=== PATIENT | male | born 1980 | race Two or more races ===

== ENCOUNTER 2019-05-05 01:46 | Emergency (ER) | payer OTHER ==
--- NOTE | 2019-05-05 02:16 | ED ---
Abdominal Pain/Male - HPI Summary HPI Summary: Pt is a 38 y/o M presenting to the ED with a chief complaint of diffuse abd pain initially onset this afternoon around 1600. He states he had a sandwich from [email or web address], and then developed the abd pain a bit later in the night. He states the pain is constant, and it is accompanied by N/V. He denies diarrhea or fever. Sx aggravated by movement and alleviated by nothing. - History of Current Complaint Chief Complaint: EDAbdPain Stated Complaint: STOMACH PAIN PER PT Hx Obtained From: Patient Onset/Duration: Gradual Onset, Lasting Hours, Still Present Timing: Constant, Lasting Hours Severity Initially: Moderate Severity Currently: Severe Pain Intensity: 10 Pain Scale Used: 0-10 Numeric Location: Diffuse Radiates: No Aggravating Factor(s): Movement Alleviating Factor(s): Nothing Associated Signs And Symptoms: Positive: Nausea, Vomiting. Negative: Fever, Diarrhea - Allergies/Home Medications Allergies/Adverse Reactions: Allergies Allergy/AdvReac Type Severity Reaction Status Date / Time No Known Allergies Allergy Verified 05/05/19 01:50 Home Medications: Home Medications Bisoprolol TAB* [Zebeta TAB*] 5 mg PO DAILY 05/05/19 [History Confirmed 05/05/19 ] Dextroamphetamine/Amphetamine [Adderall Xr 30 mg Capsule] 30 mg PO BID 05/05/19 [History Confirmed 05/05/19] PMH/Surg Hx/FS Hx/Imm Hx Previously Healthy: Yes Endocrine/Hematology History: Denies: Hx Diabetes Cardiovascular History: Reports: Hx Hypertension Psychiatric History: Reports: Hx Attention Deficit Hyperactivity Disorder Infectious Disease History: No Infectious Disease History: Denies: Traveled Outside the [place] in Last 30 Days - Family History Known Family History: Negative: Cardiac Disease - Social History Alcohol Use: None Hx Substance Use: No Substance Use Type: Reports: None Hx Tobacco Use: No Smoking Status (MU): Never Smoked Tobacco Review of Systems Negative: Fever Positive: Abdominal Pain, Vomiting, Nausea. Negative: Diarrhea All Other Systems Reviewed And Are Negative: Yes Physical Exam - Summary Physical Exam Summary: Appearance: Well-appearing, Well-nourished, lying in bed comfortably Skin: Warm, dry, no obvious rash Eyes: sclera anicteric, no conjunctival pallor ENT: mucous membranes moist, pharynx appears normal Neck: Supple, nontender Respiratory: Clear to auscultation, no signs of respiratory distress Cardiovascular: Normal S1, S2. No murmurs. Normal distal pulses in tibial and radial bilaterally. Abdomen: Soft, mild generalized tenderness without peritoneal signs, normal active bowel sounds present Musculoskeletal: Normal, Strength/ROM Intact Neurological: A&Ox3, awake and alert, mentation is normal, speech is fluent and appropriate Psychiatric: affect is normal, does not appear anxious or depressed Triage Information Reviewed: Yes Vital Signs On Initial Exam: Initial Vitals Temp Pulse Resp BP Pulse Ox 97 F 73 20 155/103 99 05/05/19 01:47 05/05/19 01:47 05/05/19 01:47 05/05/19 01:47 05/05/19 01:47 Vital Signs Reviewed: Yes Diagnostics - Vital Signs Vital Signs Temp Pulse Resp BP Pulse Ox 05/05/19 01:47 97 F 73 20 155/103 99 - Laboratory Result Diagrams: 05/05/19 02:26 05/05/19 02:26 Lab Statement: Any lab studies that have been ordered have been reviewed, and results considered in the medical decision making process. - CT CT a/p CT Interpretation Completed By: Radiologist Summary of CT Findings: Some small bowel loops, in the mid abdomen, may be thickened and edematous (probably jejunal loops). No bowel obstruction. No free air. Diagnostic considerations include: inflammatory bowel disease; nonspecific enteritis (perhaps with an inflammatory or infectious cause); bowel ischemia. ED physician has reviewed this report. Abdominal Pain Male Course/Dx - Course Course Of Treatment: Pt is a 38 y/o M presenting to the ED with a chief complaint of diffuse abd pain initially onset this afternoon around 1600. He states the pain is constant, and it is accompanied by N/V. He denies diarrhea or fever. On physical exam, the pt has mild generalized tenderness without peritoneal signs. CT a/p shows: Some small bowel loops, in the mid abdomen, may be thickened and edematous (probably jejunal loops). No bowel obstruction. No free air. Diagnostic considerations include: inflammatory bowel disease; nonspecific enteritis (perhaps with an inflammatory or infectious cause); bowel ischemia. The pt will be d/c'ed with dx of gastroenteritis, with instructions to f/u with his PCP. He is stable and agreeable with this plan. - Diagnoses Provider Diagnoses: Gastroenteritis Discharge ED - Sign-Out/Discharge Documenting (check all that apply): Patient Departure Patient Received Moderate/Deep Sedation with Procedure: No - Discharge Plan Condition: Good Disposition: HOME Prescriptions: Dicyclomine CAP* [Bentyl CAP*] 10 mg PO TID PRN #12 cap PRN Reason: abdominal pain Ondansetron ODT TAB* [Zofran 4 MG Odt TAB*] 8 mg PO Q6H PRN #12 tab.odt PRN Reason: Nausea Patient Education Materials: Gastroenteritis (ED), Acute Nausea and Vomiting ( ED) Referrals: [facility] [Outside] - 3 Days (if not improved) - Billing Disposition and Condition Condition: GOOD Disposition: Home - Attestation Statements Document Initiated by Scribe: Yes Documenting Scribe: Dipti Guzman Provider For Whom Nella is Documenting (Include Credential): Sina Chiang MD. Scribe Attestation: Dipti Nieto, sheritaed for Sina Chiang MD. on 05/08/19 at 2046. Scribe Documentation Reviewed: Yes Provider Attestation: The documentation as recorded by the Dipti hinkle accurately reflects the service I personally performed and the decisions made by Sina covarrubias MD. Status of Scribe Document: Viewed
[2019-05-05] MEDS ORDERED: NS 0.9% 1000 ML** 2,000 ML IV ONE (02:17)
[2019-05-05] MEDS ORDERED: Morphine 4 MG/ML VIAL (1 ml) 4 MG/ML VIAL IV ONE (02:17)
[2019-05-05] MEDS ORDERED: Ondansetron INJ* 2 MG/ML VIAL IV ONE (02:17)
[2019-05-05 02:34] LABS: ABS Eosinophils 0.1 10^3/ul (0-0.6); ABS Lymphocytes 0.8 10^3/ul (1.0-4.8); ABS Monocytes 0.4 10^3/ul (0-0.8); ABS Neutrophils 9.5 10^3/ul (1.5-7.7); Eosinophil % 0.7 %; Hematocrit 49 % (42-52); Lymphocyte % 7.5 %; Mean Corpuscular HGB Conc 33 g/dL (31-36); Mean Corpuscular Hemoglobin 27 pg (27-31); Mean Corpuscular Volume 80 fL (80-94); Mean Platelet Volume 7.2 fL (7.4-10.4); Platelet Count 189 10^3/uL (150-450); Red Blood Count 6.03 10^6 /uL (4.18-5.48); Red Cell Distribution Width 14 % (10-15); White Blood Count 10.8 10^3/uL (3.5-10.8)
[2019-05-05 02:49] LABS: ALT 18 U/L (7-52); AST 17 U/L (13-39); Albumin 4.2 g/dL (3.2-5.2); Albumin/Globulin Ratio 1.6 (1-3); Alkaline Phosphatase 53 U/L (34-104); Anion Gap 5 mmol/L (2-11); BUN/Creatinine Ratio 12.6 (8-20); Blood Urea Nitrogen 14 mg/dL (6-24); C Reactive Protein 1.66 mg/L (<8.01); CO2 Carbon Dioxide 28 mmol/L (22-32); Calcium 9.7 mg/dL (8.6-10.3); Chloride 102 mmol/L (101-111); EGFR African American 88.8 (>60); EGFR Non-African American 73.4 (>60); Globulin 2.6 g/dL (2-4); Glucose 146 mg/dL (70-100); Potassium 4.4 mmol/L (3.5-5.0); Sodium 135 mmol/L (135-145); Total Protein 6.8 g/dL (6.4-8.9)
[2019-05-05 03:05] LABS: Urine Appearance Cloudy; Urine Bilirubin Negative (Negative); Urine Blood Negative (Negative); Urine Color Yellow; Urine Glucose Negative (Negative); Urine Ketones Negative (Negative); Urine Nitrite Negative (Negative); Urine Protein Negative (Negative); Urine Urobilinogen Negative (Negative)
[2019-05-05] MEDS ORDERED: Iohexol 300* (CONTRAST) 10 ML SDV IV ONE (04:41)
[2019-05-05] MEDS ORDERED: PROCHLORPERAZINE INJ 5 MG/ML 2 ML VIAL IV ONE (04:50)
[2019-05-05] MEDS ORDERED: Dicyclomine CAP* 10 MG PO ONE (06:21)
[2019-05-05 06:29] VITALS: BP 130/83
== END 2019-05-05 06:31 | disposition home or self-care (01) ==
LOC: ED 01:46
DX: K52.9 Noninfective gastroenteritis and colitis, unspecified (principal); I10 Essential (primary) hypertension; F90.9 Attention-deficit hyperactivity disorder, unspecified type; Z79.899 Other long term (current) drug therapy
CPT/HCPCS: 36415; 74177; 80053; 81003; 83690; 85025; 86140; 96361; 96374; 96375; 99283; A9270-GY; J0780; J2270; J2405; Q9967